=== PATIENT | female | born 1985 | race Two or more races ===

== ENCOUNTER 2017-11-11 22:08 | Emergency (ER) | payer MEDICAID ==
[~2017-11-11] VITALS: Ht 157.5 cm; Wt 57.3 kg
[2017-11-11] MEDS ORDERED: ketorolac trometh inj. 60 MG/2 ML VIAL IM ONE (23:40)
[2017-11-11] MEDS ORDERED: ondansetron 4mg rapidly disintigrating tab PO ONE (23:40)
[2017-11-11] MEDS ORDERED: morphine 4 MG/ML inj SYRINge IM ONE (23:40)
[2017-11-12] MEDS ORDERED: IBUP-1984 PO (00:31)
[2017-11-12] MEDS ORDERED: HYDR-3965 PO (00:31)
[2017-11-12 00:48] VITALS: BP 111/76
== END 2017-11-12 00:51 | disposition home or self-care (01) ==
LOC: ER 22:09
DX: M62.830 Muscle spasm of back (principal); Z90.49 Acquired absence of other specified parts of digestive tract; Z79.899 Other long term (current) drug therapy
CPT/HCPCS: 96372; 99284; J1885; J2270